=== PATIENT | female | born 1980 | race Caucasian/White ===

== ENCOUNTER 2017-08-18 13:20 | Emergency (ER) | payer BC ==
--- NOTE | 2017-08-18 15:09 | UC ---
Skin Complaint HPI - HPI Summary HPI Summary: Abrasion on abdomen at belt line-pat states very painful due to location - History of Current Complaint Chief Complaint: UCSkin Time Seen by Provider: 08/18/17 15:08 Stated Complaint: WOUND ON STOMACH Hx Obtained From: Patient Hx Last Menstrual Period: 07/11/17 ?: No Onset/Duration: Sudden Onset, Lasting Days - began today, Still Present Onset Severity: Moderate Current Severity: Moderate Location: Discrete - side side of mid abdomen with erythema around skin abrasion Aggravating Factor(s): Touch Alleviating Factor(s): Nothing Associated Signs & Symptoms: Positive: Negative - Allergy/Home Medications Allergies/Adverse Reactions: Allergies Allergy/AdvReac Type Severity Reaction Status Date / Time Amoxicillin [From Augmentin] Allergy Hives Verified 08/18/17 13:29 Cefprozil [From Cefzil] Allergy Hives Verified 08/18/17 13:29 Clarithromycin [From Biaxin] Allergy Hives Verified 08/18/17 13:29 Clavulanic Acid Allergy Hives Verified 08/18/17 13:29 [From Augmentin] NSAIDs Allergy Unknown Verified 08/18/17 13:29 Reaction Details Home Medications: Home Medications Omeprazole CAP* [Prilosec CAP* 20 MG] 20 mg PO DAILY 08/18/17 [History Confirmed 08/18/17] Propranolol TAB* [Inderal TAB*] 60 mg PO DAILY 08/18/17 [History Confirmed 08/18] Review of Systems Constitutional: Negative Skin: Other - skin abrasion with erythema Eyes: Negative ENT: Negative Respiratory: Negative Cardiovascular: Negative Gastrointestinal: Negative Genitourinary: Negative Motor: Negative Neurovascular: Negative Musculoskeletal: Negative Neurological: Negative Psychological: Negative Is Patient Immunocompromised?: No All Other Systems Reviewed And Are Negative: Yes PMH/Surg Hx/FS Hx/Imm Hx Previously Healthy: Yes Cardiovascular History: Hypertension GI/ History: Gastroesophageal Reflux - Surgical History Surgical History: Yes Surgery Procedure, Year, and Place: tonsillectomy. adenoidectomy - Family History Known Family History: Positive: None - Social History Occupation: Employed Full-time Lives: With Family Alcohol Use: Rare Substance Use Type: None Smoking Status (MU): Never Smoked Tobacco Household Exposure Type: Cigarettes - Immunization History Most Recent Influenza Vaccination: Not UTD Most Recent Tetanus Shot: unk Most Recent Pneumonia Vaccination: unk Physical Exam Triage Information Reviewed: Yes Appearance: Well-Appearing, No Pain Distress, Well-Nourished Vital Signs: Initial Vital Signs Temp 99.0 F 08/18/17 13:24 Pulse 93 08/18/17 13:24 Resp 16 08/18/17 13:24 BP 147/83 08/18/17 13:24 Pulse Ox 100 08/18/17 13:24 Vital Signs Reviewed: Yes Eye Exam: Normal Eyes: Positive: Conjunctiva Clear ENT Exam: Normal ENT: Positive: Normal ENT inspection, Hearing grossly normal. Negative: Nasal congestion, Trismus, Muffled voice, Hoarse voice Dental Exam: Normal Neck exam: Normal Neck: Positive: Supple, Nontender Respiratory Exam: Normal Respiratory: Positive: Chest non-tender, No respiratory distress, No accessory muscle use Cardiovascular Exam: Normal Cardiovascular: Positive: RRR, Pulses Normal, Brisk Capillary Refill Musculoskeletal Exam: Normal Musculoskeletal: Positive: Strength Intact, ROM Intact, No Edema Neurological Exam: Normal Neurological: Positive: Alert, Muscle Tone Normal Psychological Exam: Normal Skin Exam: Normal - 15 mm of skin abrasion with 2 cm of erythema superficial Skin: Positive: Other Course/Dx - Course Course Of Treatment: bactroban ointment with dressing mild soap and water wash for with pcp - Diagnoses Provider Diagnoses: Skin abrasion with localized irratation, highblood pressure in poor control Discharge - Discharge Plan Condition: Stable Disposition: HOME Patient Education Materials: Acute Wound Care (ED) Referrals: Jose Eduardo Chapa MD [Primary Care Provider] - If Needed
[2017-08-18] MEDS ORDERED: Mupirocin 2% OINT* TUBE TOPICAL ONE (15:14)
[2017-08-18 15:39] VITALS: BP 132/76
== END 2017-08-18 15:38 | disposition home or self-care (01) ==
LOC: UCEAST 13:20
DX: S30.811A Abrasion of abdominal wall, initial encounter (principal); X58.XXXA Exposure to other specified factors, initial encounter; Y93.9 Activity, unspecified; Y92.9 Unspecified place or not applicable; Y99.9 Unspecified external cause status; K21.9 Gastro-esophageal reflux disease without esophagitis; I10 Essential (primary) hypertension
CPT/HCPCS: 99212; G0463

== ENCOUNTER 2018-06-14 21:51 | Emergency (ER) | payer BC ==
--- NOTE | 2018-06-14 23:56 | ED ---
Upper Extremity Pain - HPI Summary HPI Summary: Patient complains of mechanical fall this evening when she slipped on her deck with subsequent left wrist pain. Denies any other pain or injuries. No anti- coag. Cannot take NSAIDs. - History of Current Complaint Chief Complaint: EDExtremityUpper Stated Complaint: LT WRIST INJURY Time Seen by Provider: 06/14/18 23:33 Hx Obtained From: Patient Hx Last Menstrual Period: 07/11/17 Mechanism Of Injury: Fall From A Standing Position Onset/Duration: Started Hours Ago Timing: Constant Severity Initially: Moderate Severity Currently: Moderate Pain Location: Wrist Character: Throbbing Aggravating Factor(s): Movement Alleviating Factor(s): Nothing Associated Signs & Symptoms: Positive: Swelling, Bruising - Allergies/Home Medications Allergies/Adverse Reactions: Allergies Allergy/AdvReac Type Severity Reaction Status Date / Time MS Amoxicillin Allergy Hives Verified 06/14/18 22:05 [From Augmentin] MS Cefprozil [From Cefzil] Allergy Hives Verified 06/14/18 22:05 MS Clarithromycin Allergy Hives Verified 06/14/18 22:05 [From Biaxin] MS Clavulanic Acid Allergy Hives Verified 06/14/18 22:05 [From Augmentin] MS NSAIDs [NSAIDs] Allergy Unknown Verified 06/14/18 22:05 Reaction Details PMH/Surg Hx/FS Hx/Imm Hx Endocrine/Hematology History: Denies: Hx Anticoagulant Therapy, Hx Diabetes, Hx Thyroid Disease Cardiovascular History: Reports: Hx Hypertension Respiratory History: Denies: Hx Asthma, Hx Chronic Obstructive Pulmonary Disease (COPD) GI History: Reports: Hx Gastrointestinal Bleed, Hx Ulcer - Bleeding 01/2015 - Surgical History Surgery Procedure, Year, and Place: tonsillectomy. adenoidectomy Infectious Disease History: No Infectious Disease History: Denies: Hx Clostridium Difficile, Hx Hepatitis, Hx Human Immunodeficiency Virus (HIV), Hx of Known/Suspected MRSA, Hx Shingles, Hx Tuberculosis, Traveled Outside the [place] in Last 30 Days - Family History Known Family History: Positive: None - Social History Alcohol Use: Rare Substance Use Type: Reports: None Smoking Status (MU): Never Smoked Tobacco Review of Systems Constitutional: Negative Eyes: Negative ENT: Negative Cardiovascular: Negative Respiratory: Negative Gastrointestinal: Negative Genitourinary: Negative Positive: Arthralgia Skin: Negative Neurological: Negative Psychological: Normal All Other Systems Reviewed And Are Negative: Yes Physical Exam - Summary Physical Exam Summary: Normal breaker layer strength in left hand. Bruising and swelling to the proximal wrist on lateral edge. PMS intact distally. No deformity noted. Normal range of motion in left elbow and shoulder. Triage Information Reviewed: Yes Vital Signs On Initial Exam: Initial Vitals Temp Pulse Resp BP Pulse Ox 97.4 F 87 16 140/85 99 06/14/18 22:00 06/14/18 22:00 06/14/18 22:00 06/14/18 22:00 06/14/18 22:00 Vital Signs Reviewed: Yes Appearance: Positive: Well-Appearing Skin: Positive: Warm Head/Face: Positive: Normal Head/Face Inspection Eyes: Positive: Normal Neck: Positive: Supple Respiratory/Lung Sounds: Positive: Clear to Auscultation Cardiovascular: Positive: Normal Abdomen Description: Positive: Nontender Musculoskeletal: Positive: Normal Neurological: Positive: Normal Psychiatric: Positive: Normal AVPU Assessment: Alert - [place] Coma Scale Best Eye Response: 4 - Spontaneous Best Motor Response: 6 - Obeys Commands Best Verbal Response: 5 - Oriented Coma Scale Total: 15 Diagnostics - Vital Signs Vital Signs Temp Pulse Resp BP Pulse Ox 06/14/18 22:00 97.4 F 87 16 140/85 99 - Laboratory Lab Statement: Any lab studies that have been ordered have been reviewed, and results considered in the medical decision making process. - Radiology wrist Xray Interpretation: No Acute Changes Radiology Interpretation Completed By: ED Physician Course/Dx - Course Course Of Treatment: Patient complains of mechanical fall this evening when she slipped on her deck with subsequent left wrist pain. Denies any other pain or injuries. No anti-coag. Cannot take NSAIDs. Physical exam:Normal breaker layer strength in left hand. Bruising and swelling to the proximal wrist on lateral edge. PMS intact distally. No deformity noted. Normal range of motion in left elbow and shoulder. No snuffbox tenderness. X-ray negative. Wrist splint placed here in ED. - Diagnoses Provider Diagnoses: Contusion Discharge - Sign-Out/Discharge Documenting (check all that apply): Patient Departure - Discharge Plan Condition: Stable Disposition: HOME Patient Education Materials: Contusion in Adults (ED) Referrals: Jose Eduardo Chapa MD [Primary Care Provider] - Kristian Clark MD [Medical Doctor] - Additional Instructions: If pain persists follow-up with orthopedics Dr Clark. Return to the ED for any new or worsening symptoms - Billing Disposition and Condition Condition: STABLE Disposition: Home
[2018-06-15] MEDS ORDERED: HYDROcodone/ACETAMIN 5-325 MG* 1 TAB PO ONE (00:43)
[2018-06-15 06:26] VITALS: BP 133/70
--- NOTE | 2018-06-15 07:43 | RAD ---
INDICATION: Left wrist injury. TECHNIQUE: 3 views of the left wrist were obtained. FINDINGS: There is prominent medial soft tissue swelling. The bones are normal alignment. Joint spaces appear maintained. No fracture is seen. IMPRESSION: NO EVIDENCE FOR FRACTURE. IF THE PATIENT'S SYMPTOMS PERSIST RECOMMEND FOLLOW-UP IMAGING. R0
== END 2018-06-15 01:18 | disposition home or self-care (01) ==
LOC: ED 21:51
DX: S60.212A Contusion of left wrist, initial encounter (principal); W19.XXXA Unspecified fall, initial encounter; Y92.9 Unspecified place or not applicable; I10 Essential (primary) hypertension; Z88.0 Allergy status to penicillin
CPT/HCPCS: 99282